=== PATIENT | male | born 1960 | race American Indian/Alaskan Native ===

== ENCOUNTER 2017-04-12 13:14 | Outpatient (CLI) | payer MEDICAID ==
[2017-04-12 13:27] LABS: Hematocrit 43.1 % (35.5-45.6); Hemoglobin 14.6 gm/dl (11.8-15.2); Mean Corpuscular HGB Conc 34 % (32-34); Mean Corpuscular Hemoglobin 31 pg (28-32); Mean Corpuscular Volume 91 fl (84-94); Platelet Count 267 K/mm3 (140-440); Red Blood Count 4.73 M/mm3 (3.65-5.03); Red Cell Distribution Width 14.3 % (13.2-15.2)
[2017-04-12 13:37] LABS: BUN/Creatinine Ratio 18; Blood Urea Nitrogen 16 mg/dL (9-20); Calcium 8.8 mg/dL (8.4-10.2); Hemolysis Index 8
[2017-04-12 14:23] LABS: Platelet Estimate Consistent w Auto; RBC Morphology Normal; Total Cells Counted 100
[2017-04-14 16:32] LABS: Bilirubin,Urine NEG (Negative); Blood,Urine NEG (Negative); Color,Urine Yellow (Yellow); Mucus,Urine FEW /HPF; Nitrite,Urine NEG (Negative); RBC,Urine < 1.0 /HPF (0.0-6.0); Sperm,Urine FEW /HPF (NP); Urobilinogen,Urine < 2.0 mg/dL (<2.0); WBC,Urine < 1.0 /HPF (0.0-6.0)
== END 2017-04-12 13:15 | disposition home or self-care (01) ==
LOC: LAB 13:14
PROVIDERS: ATTEND Internal Medicine Nephrology
DX: I12.9 Hypertensive chronic kidney disease with stage 1 through stage 4 chronic kidney disease, or unspecified chronic kidney disease (principal); N18.3 Chronic kidney disease, stage 3 (moderate); N40.1 Benign prostatic hyperplasia with lower urinary tract symptoms
CPT/HCPCS: 36415; 80048; 85007; 85025

== ENCOUNTER 2017-05-11 17:13 | Emergency (ER) | payer MEDICAID ==
--- NOTE | 2017-05-11 18:38 | XRay Report ---
FINAL REPORT PROCEDURE: XR ANKLE 3+V LT TECHNIQUE: Left ankle, three views HISTORY: Left ankle pain COMPARISON: No prior studies are available for comparison. FINDINGS: No fracture or dislocation is seen. No focal osseous lesions. The ankle mortise and talar dome are intact. IMPRESSION: No fracture is identified
--- NOTE | 2017-05-11 21:04 | ED Elopement Review ---
ED Pt Elopement review - Results review Lab results: I requested nurse to repeat vital signs prior to my evaluation. Tachycardia has improved. Patient was upset that he didn't have any food, that no one would break is 20 dollar bill so he can go to the vending machine, and he left without MD evaluation. Ankle x-ray reviewed and normal. Patient was able to ambulate out of the ED without difficulty. Patient is hypertensive, has a previous history, and does not have any symptoms of hypertensive emergency clinically and therefore can follow-up for his ongoing chronic ankle pain. - Call Back decision Pt Call Back Decision: No action required
[2017-05-11] MEDS ORDERED: NORCO 5/325 PO ONE (21:24)
[2017-05-11] MEDS ORDERED: CATAPRES PO ONE (21:24)
--- NOTE | 2017-05-11 21:29 | Emergency Department Report ---
ED Extremity Problem HPI - General Chief complaint: Extremity Injury, Lower Stated complaint: ANKLE PAIN Time Seen by Provider: 05/11/17 20:50 Source: patient Mode of arrival: Ambulatory Limitations: No Limitations - History of Present Illness Initial comments: Patient return to the ED with food to be seen. Initially thought to have eloped. 57-year-old male past medical history of previous CVA currently on aspirin, dementia, hypertension, seizures currently on Keppra, presents to the hospital with complaints of left ankle pain since twisting his ankle last night. Patient has pain to the lateral ankle related not tested in intensity and worse with ambulation. No other injury reported. 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 Patient's blood pressure is elevated he did not have his blood pressure medication today. - Related Data Home Medications Medication Instructions Recorded Confirmed Last Taken Warfarin [Coumadin] 7.5 mg PO DAILY 08/06/13 06/30/15 08/17/13 Pravastatin [Pravachol] 20 mg PO QHS 06/30/15 06/30/15 Unknown Tamsulosin [Flomax] 0.4 mg PO QDAY 06/30/15 06/30/15 Unknown amLODIPine [Norvasc] 10 mg PO DAILY 06/30/15 06/30/15 Unknown Previous Rx's Medication Instructions Recorded Last Taken Type HYDROcodone/ACETAMINOPHEN [Lortab 1 each PO Q6HR #10 tab 10/18/13 Unknown Rx 7.5-325 mg Tablet] Famotidine [Pepcid] 20 mg PO BID #14 tablet 05/11/17 Unknown Rx Naproxen [Naprosyn TAB] 375 mg PO BID PRN #14 tablet 05/11/17 Unknown Rx Allergies Allergy/AdvReac Type Severity Reaction Status Date / Time No Known Allergies Allergy Verified 06/30/15 18:05 ED Review of Systems ROS: Stated complaint: ANKLE PAIN Other details as noted in HPI Comment: All other systems reviewed and negative Other: Constitutional: No fevers chills Eyes: No eye pain visual changes ENT: No ear pain or throat pain Neck: Denies pain Respiratory: Denies cough wheezing shortness of breath Cardiovascular: Denies chest pain, palpitations, syncope GI: Denies abdominal pain, nausea, vomiting, diarrhea : Denies dysuria Musculoskeletal: As per HPI Skin: Denies rash, lesions, erythema Neurologic: Denies headache, numbness, weakness Psychiatric: Denies suicidal ideation, hallucinations ED Past Medical Hx - Past Medical History Previous Medical History?: Yes Hx Hypertension: Yes Hx CVA: Yes Hx Seizures: Yes Hx Psychiatric Treatment: No Additional medical history: high cholesterol. Dementia - Surgical History Past Surgical History?: Yes Additional Surgical History: kidney removed b/c CA - Social History Smoking Status: Current Every Day Smoker Substance Use Type: Prescribed - Medications Home Medications: Home Medications Medication Instructions Recorded Confirmed Last Taken Type Warfarin [Coumadin] 7.5 mg PO DAILY 08/06/13 06/30/15 08/17/13 History HYDROcodone/ACETAMINOPHEN [Lortab 1 each PO Q6HR #10 tab 10/18/13 06/30/15 Unknown Rx 7.5-325 mg Tablet] Pravastatin [Pravachol] 20 mg PO QHS 06/30/15 06/30/15 Unknown History Tamsulosin [Flomax] 0.4 mg PO QDAY 06/30/15 06/30/15 Unknown History amLODIPine [Norvasc] 10 mg PO DAILY 06/30/15 06/30/15 Unknown History Famotidine [Pepcid] 20 mg PO BID #14 tablet 05/11/17 Unknown Rx Naproxen [Naprosyn TAB] 375 mg PO BID PRN #14 tablet 05/11/17 Unknown Rx ED Physical Exam - General Limitations: No Limitations - Other Other exam information: General: No limitations, patient is alert in no acute distress Head exam: Atraumatic, normocephalic Eyes exam: Normal appearance ENT: Moist mucous membrane, normal oropharynx Neck exam: Normal inspection, full range of motion, no meningismus nontender Respiratory exam: Clear to auscultation bilateral, no wheezes, rales, crackles Cardiovascular: Normal rate and rhythm, normal heart sounds Abdomen: Soft, nondistended, and nontender, with normal bowel sounds, no rebound, or guarding Extremity: Full range of motion normal inspection no deformity. Mild left lateral ankle tenderness. 2+ DP pulse Back: Normal Inspection, full range of motion, no tenderness Neurologic: Alert, cranial nerves intact, no motor or sensory deficit Psychiatric: normal affect, normal mood Skin: Warm, dry, intact ED Course Vital Signs 05/11/17 05/11/17 17:21 21:00 Temperature 99.1 F Pulse Rate 115 H 97 H Respiratory 14 18 Rate Blood Pressure 152/104 Blood Pressure 193/117 [Left] O2 Sat by Pulse 97 100 Oximetry - Reevaluation(s) Reevaluation #1: 05/11/17 21:27 Patient's blood pressure is elevated because he did not have his medications today. Clonidine 0.1 mg ordered. One Bard for pain also ordered ED Medical Decision Making - Radiology Data Radiology results: report reviewed Left ankle x-ray: No acute findings - Medical Decision Making Left ankle pain Chronic pain as repeat No gross abnormality clinically X-ray normal Bard could given Patient will be prescribed Naprosyn for pain and Pepcid since he is on an aspirin. Tramadol's contraindicated given history of seizures patito wrap for support Uncontrolled hypertension Patient did not take his medications today Clonidine 0.1 mg given prior to discharge Family member taking patient home does not want to wait for blood pressure to come down and will monitor at home Pt denies headache, chest pain, or shortness of breath and recent March labs reveal normal kidney function - Differential Diagnosis fracture, contusion, sprain Critical Care Time: No Critical care attestation.: If time is entered above; I have spent that time in minutes in the direct care of this critically ill patient, excluding procedure time. ED Disposition Clinical Impression: Left ankle sprain, Uncontrolled hypertension Disposition: TO HOME OR SELFCARE Is pt being admited?: No Does the pt Need Aspirin: No Condition: Stable Instructions: Hypertension (ED), Ankle Sprain (ED) Additional Instructions: Take the pain medication with food so it does not upset your stomach. I prescribed Pepcid to help decrease acid production while taking Naprosyn to protect your stomach. Follow-up with your primary care doctor. Continue to monitor your blood pressure home. Return is symptoms worsen Prescriptions: Famotidine [Pepcid] 20 mg PO BID #14 tablet Naproxen [Naprosyn TAB] 375 mg PO BID PRN #14 tablet PRN Reason: Pain Referrals: SUSAN MULLEN MD [Primary Care Provider] - 3-5 Days your, primary doctor [Other] - 3-5 Days Time of Disposition: 21:32
[2017-05-11 21:43] VITALS: BP 171/111
== END 2017-05-11 21:47 | disposition home or self-care (01) ==
LOC: ED 17:13
DX: S93.402A Sprain of unspecified ligament of left ankle, initial encounter (principal); I10 Essential (primary) hypertension; Z79.82 Long term (current) use of aspirin; E78.00 Pure hypercholesterolemia, unspecified; F17.200 Nicotine dependence, unspecified, uncomplicated; X58.XXXA Exposure to other specified factors, initial encounter; Y93.89 Activity, other specified; Y92.89 Other specified places as the place of occurrence of the external cause; Y99.8 Other external cause status
CPT/HCPCS: 99283